=== PATIENT | female | born 1955 | race Caucasian/White ===

== ENCOUNTER 2020-11-14 17:09 | Inpatient (IN) | payer OTHER ==
[~2020-11-14] VITALS: Ht 165.1 cm; Wt 68.0 kg
[2020-11-14] MEDS ORDERED: ALLERGY EYE DRO10 M1 (17:37)
[2020-11-14] MEDS ORDERED: PROTONIX40 M1 (17:37)
[2020-11-14] MEDS ORDERED: LIPITOR20 MG (17:37)
[2020-11-14] MEDS ORDERED: GLIPIZIDE XL5 MG (17:38)
[2020-11-14] MEDS ORDERED: COZAAR50 MG (17:38)
[2020-11-14] MEDS ORDERED: INVOKANA100 MG (17:39)
[2020-11-14] MEDS ORDERED: PRILOSEC OTC20 MG (17:40)
[2020-11-20] MEDS ORDERED: INTESTINEX680 M1 PO (14:58)
== END 2020-11-20 19:02 | disposition home or self-care (01) | DRG 419 ==
LOC: ER 17:09 → SURH 11-15 00:37
PROVIDERS: Surgery; ADMIT Internal Medicine; ATTEND Internal Medicine
PROC: BF37ZZZ Magnetic Resonance Imaging (MRI) of Pancreas (ICD-10-PCS; 2020-11-15)
PROC: BW40ZZZ Ultrasonography of Abdomen (ICD-10-PCS; 2020-11-15)
PROC: 0F798ZZ Dilation of Common Bile Duct, Via Natural or Artificial Opening Endoscopic (ICD-10-PCS; 2020-11-16)
PROC: 0FT44ZZ Resection of Gallbladder, Percutaneous Endoscopic Approach (ICD-10-PCS; principal; 2020-11-17 12:00)
PROC: BF37ZZZ Magnetic Resonance Imaging (MRI) of Pancreas (ICD-10-PCS; 2020-11-18)
PROC: 0F798ZZ Dilation of Common Bile Duct, Via Natural or Artificial Opening Endoscopic (ICD-10-PCS; 2020-11-20)
DX: K80.62 Calculus of gallbladder and bile duct with acute cholecystitis without obstruction (principal); E03.9 Hypothyroidism, unspecified; E78.00 Pure hypercholesterolemia, unspecified; E11.65 Type 2 diabetes mellitus with hyperglycemia; Z79.84 Long term (current) use of oral hypoglycemic drugs; Z20.822 Contact with and (suspected) exposure to COVID-19; I10 Essential (primary) hypertension